=== PATIENT | male | born 1960 | race Caucasian/White ===

== ENCOUNTER → 2021-08-06 | Outpatient (CLI) | payer BC ==
[~2021-08-06] MED LIST: CARVEDILOL3.125 MG PO; CYPROHEPTADINE H4 MG PO; EPIPEN 2-P0.3 MG/0.3 INJ; GERITOL COMPLE1 EACH PO; IRON159 MG PO; ISOSORBIDE MONO60 MG PO; LIPITOR40 MG PO; LISINOPRIL10 MG PO; METFORMIN HCL500 MG PO; MULTI-VITAMIN1 EAC1 PO; NITROSTAT 0.40.4 MG SL; RANOLAZINE ER500 MG PO; VITAMIN D21250 MCG PO
== END ==
LOC: MRI 09:00
DX: C34.11 Malignant neoplasm of upper lobe, right bronchus or lung (principal)
CPT/HCPCS: 70553; A9577

== ENCOUNTER → 2021-08-09 | Outpatient (CLI) | payer BC | LOC: NM 07:43 | DX: C34.11 Malignant neoplasm of upper lobe, right bronchus or lung (principal); R93.7 Abnormal findings on diagnostic imaging of other parts of musculoskeletal system | CPT/HCPCS: 78306; A9503 ==

== ENCOUNTER → 2021-08-16 | Day surgery (SDC) | payer BC | END | disposition home or self-care (01) | LOC: OR 05:55 | DX: C34.90 Malignant neoplasm of unspecified part of unspecified bronchus or lung (principal); I25.10 Atherosclerotic heart disease of native coronary artery without angina pectoris; I25.2 Old myocardial infarction; I10 Essential (primary) hypertension; E78.5 Hyperlipidemia, unspecified; E11.9 Type 2 diabetes mellitus without complications; Z95.818 Presence of other cardiac implants and grafts; Z87.891 Personal history of nicotine dependence; Z79.84 Long term (current) use of oral hypoglycemic drugs; Z79.899 Other long term (current) drug therapy; Z88.0 Allergy status to penicillin; Z88.8 Allergy status to other drugs, medicaments and biological substances | CPT/HCPCS: 71045; 77001; 82962; C1769; C1788; J1100; J1642; J2001; J2250; J2405; J2704; J3010; J3370; J7030; J7040; J7050; J7120 ==